=== PATIENT | female | born 1965 | race Caucasian/White ===

== ENCOUNTER 2024-02-20 13:54 | Outpatient (RCR) | payer MEDICARE ==
[~2024-02-20 13:54] MED LIST: LIDOCAINE VISC 2% SOLN 15 ML UDC ONE; TRIAMCINOLONE ACET 0.1% CREAM 15 GM TUBE ONE
[2024-02-27] MEDS ORDERED: TRIAMCINOLONE ACET 0.1% CREAM 15 GM TUBE ONE (11:55)
== END 2024-02-29 ==
LOC: WCC 13:54
PROVIDERS: ATTEND Internal Medicine Infectious Disease
DX: S31.105A Unspecified open wound of abdominal wall, periumbilic region without penetration into peritoneal cavity, initial encounter (principal)

== ENCOUNTER 2024-03-05 14:12 | Outpatient (RCR) | payer MEDICARE | END 2024-03-30 | LOC: WCC 14:12 | PROVIDERS: ATTEND Internal Medicine Infectious Disease | DX: S31.105A Unspecified open wound of abdominal wall, periumbilic region without penetration into peritoneal cavity, initial encounter (principal) ==